=== PATIENT | female | born 1930 | race Two or more races ===

== ENCOUNTER 2018-03-02 09:18 | Outpatient (CLI) | payer OTHER | END 2018-03-02 09:24 | disposition home or self-care (01) | LOC: RAD 09:18 | DX: L89.149 Pressure ulcer of left lower back, unspecified stage (principal); G61.0 Guillain-Barre syndrome ==

== ENCOUNTER 2018-03-02 10:05 | Outpatient (CLI) | payer OTHER | END 2018-03-02 10:30 | disposition home or self-care (01) | LOC: NUCLEAR 10:05 | DX: L89.149 Pressure ulcer of left lower back, unspecified stage (principal); G61.0 Guillain-Barre syndrome; I73.9 Peripheral vascular disease, unspecified ==

== ENCOUNTER 2018-03-03 12:55 | Outpatient (CLI) | payer OTHER | END 2018-03-03 13:52 | disposition home or self-care (01) | LOC: EDBD 12:55 → NUCLEAR 12:55 | DX: L89.149 Pressure ulcer of left lower back, unspecified stage (principal); G61.0 Guillain-Barre syndrome; I87.2 Venous insufficiency (chronic) (peripheral) ==

== ENCOUNTER 2018-03-19 21:35 | Inpatient (IN) | payer OTHER ==
[~2018-03-19] VITALS: Ht 160 cm; Wt 63.5 kg
[2018-05-03] MEDS ORDERED: NIFE60TA3 PO (08:50)
[2018-05-03] MEDS ORDERED: NIFEDIPINE ER60 MG PO (16:59)
[2018-05-03] MEDS ORDERED: FERROUS SULFAT325 M1 PO (16:59)
[2018-05-03] MEDS ORDERED: CLOTRIMAZOLE15 GM TOP (17:00)
[2018-05-03] MEDS ORDERED: B Complex CAPSULE PO (17:01)
[2018-05-03] MEDS ORDERED: VITAMIN C500 M1 PO (17:01)
[2018-05-03] MEDS ORDERED: MULTIVITAMINS1 EAC1 PO (17:01)
[2018-05-03] MEDS ORDERED: Intestinex CAP PO (17:02)
[2018-05-03] MEDS ORDERED: LEVAQUIN500 MG PO (17:03)
[2018-05-03] MEDS ORDERED: PRE PROTEIN 2030 ML PO (17:05)
== END 2018-05-03 18:21 | disposition home or self-care (01) | DRG 623 ==
LOC: ER 21:35 → MEDJ 03-20 08:37
PROVIDERS: ADMIT Internal Medicine Cardiovascular Disease
PROC: BQ3MZZZ Magnetic Resonance Imaging (MRI) of Left Foot (ICD-10-PCS; 2018-03-20)
PROC: 02HV33Z Insertion of Infusion Device into Superior Vena Cava, Percutaneous Approach (ICD-10-PCS; 2018-03-20)
PROC: 0T9B70Z Drainage of Bladder with Drainage Device, Via Natural or Artificial Opening (ICD-10-PCS; 2018-03-20)
PROC: 8E0ZXY6 Isolation (ICD-10-PCS; 2018-03-20)
PROC: 4A12X4Z Monitoring of Cardiac Electrical Activity, External Approach (ICD-10-PCS; 2018-03-26)
PROC: 0JBR0ZZ Excision of Left Foot Subcutaneous Tissue and Fascia, Open Approach (ICD-10-PCS; principal; 2018-04-01)
PROC: B246ZZZ Ultrasonography of Right and Left Heart (ICD-10-PCS; 2018-04-01)
PROC: BT4JZZZ Ultrasonography of Kidneys and Bladder (ICD-10-PCS; 2018-04-01)
PROC: 30233N1 Transfusion of Nonautologous Red Blood Cells into Peripheral Vein, Percutaneous Approach (ICD-10-PCS; 2018-04-13)
DX: E11.621 Type 2 diabetes mellitus with foot ulcer (principal); N39.0 Urinary tract infection, site not specified; E11.52 Type 2 diabetes mellitus with diabetic peripheral angiopathy with gangrene; I70.262 Atherosclerosis of native arteries of extremities with gangrene, left leg; M86.672 Other chronic osteomyelitis, left ankle and foot; L97.524 Non-pressure chronic ulcer of other part of left foot with necrosis of bone; L89.322 Pressure ulcer of left buttock, stage 2; L89.312 Pressure ulcer of right buttock, stage 2; L89.152 Pressure ulcer of sacral region, stage 2; Z79.84 Long term (current) use of oral hypoglycemic drugs; B35.3 Tinea pedis; E11.22 Type 2 diabetes mellitus with diabetic chronic kidney disease; I12.9 Hypertensive chronic kidney disease with stage 1 through stage 4 chronic kidney disease, or unspecified chronic kidney disease; N18.2 Chronic kidney disease, stage 2 (mild); N17.8 Other acute kidney failure; D63.1 Anemia in chronic kidney disease; E87.5 Hyperkalemia; I87.2 Venous insufficiency (chronic) (peripheral); I70.0 Atherosclerosis of aorta; B96.89 Other specified bacterial agents as the cause of diseases classified elsewhere; B95.2 Enterococcus as the cause of diseases classified elsewhere; B96.4 Proteus (mirabilis) (morganii) as the cause of diseases classified elsewhere

== ENCOUNTER 2018-07-05 14:19 | Inpatient (IN) | payer OTHER ==
[~2018-07-05] VITALS: Ht 157.5 cm; Wt 140.0 kg
[~2018-07-05 14:19] MED LIST: B Complex CAPSULE PO; CLOTRIMAZOLE15 GM TOP; FERROUS SULFAT325 M1 PO; Intestinex CAP PO; LEVAQUIN500 MG PO; MULTIVITAMINS1 EAC1 PO; NIFE60TA3 PO; NIFEDIPINE ER60 MG PO; PRE PROTEIN 2030 ML PO; VITAMIN C500 M1 PO
[2018-07-05] MEDS ORDERED: CEFEPIME 11 GM/50 ML IV (15:14)
--- NOTE | 2018-07-05 15:15 | NUR ---
PACIENTE AL MOMENTO ESTABLE DENTRO DE LOZANO CONDICION, ALERTA Y ORIENTADA X3 LLEGA CON CBC OPD DE SEGUIMIENTO EL CUAL MUESTRA LA HEMOGLOBINA EN 7.1 Y HEMATOCRITO EN 22.4, SE PASA A AREA DE OBSERVACION, SE CONTINUA MONITOREANDO POR CAMBIOS.
--- NOTE | 2018-07-05 18:22 | NUR ---
SE ORIENTA A PTE SOBRE PROCESO DE VENOPUNCION Y JOSIAH DE MUESTRAS PTE REFIERE ENTENDER INF FARHAN POR RN DE SACHAO.
== END 2018-07-07 10:48 | disposition home or self-care (01) | DRG 683 ==
LOC: ER 14:19 → SEC-K 20:32 → EDBD 20:32 → MEDI 20:32 → MEDJ 07-06 01:59 → MEDI 07-06 01:59
PROVIDERS: ADMIT Internal Medicine Cardiovascular Disease
PROC: 30233N1 Transfusion of Nonautologous Red Blood Cells into Peripheral Vein, Percutaneous Approach (ICD-10-PCS; principal; 2018-07-05)
DX: I12.9 Hypertensive chronic kidney disease with stage 1 through stage 4 chronic kidney disease, or unspecified chronic kidney disease (principal); N17.8 Other acute kidney failure; G61.0 Guillain-Barre syndrome; M86.8X7 Other osteomyelitis, ankle and foot; D63.8 Anemia in other chronic diseases classified elsewhere; Z99.3 Dependence on wheelchair; I70.8 Atherosclerosis of other arteries; B35.3 Tinea pedis; E87.5 Hyperkalemia; G60.8 Other hereditary and idiopathic neuropathies; L89.152 Pressure ulcer of sacral region, stage 2; I87.2 Venous insufficiency (chronic) (peripheral); N18.9 Chronic kidney disease, unspecified; D63.1 Anemia in chronic kidney disease

== ENCOUNTER 2019-08-27 20:55 | Emergency (ER) | payer OTHER ==
[~2019-08-27] VITALS: Ht 162.6 cm; Wt 89.8 kg
[~2019-08-27 20:55] MED LIST changes: +CEFEPIME 11 GM/50 ML IV
== END 2019-08-28 02:34 | disposition designated cancer center or children's hospital (05) ==
LOC: ER 20:55
DX: I63.89 Other cerebral infarction (principal); G81.91 Hemiplegia, unspecified affecting right dominant side; R47.01 Aphasia; I10 Essential (primary) hypertension; N39.0 Urinary tract infection, site not specified; R31.29 Other microscopic hematuria
CPT/HCPCS: 70551

== ENCOUNTER 2019-10-01 17:54 | Inpatient (IN) | payer OTHER ==
[~2019-10-01] VITALS: Ht 167.6 cm; Wt 77.1 kg
[2019-10-01] MEDS ORDERED: ZESTRIL20 MG (17:58)
[2019-10-01] MEDS ORDERED: CALCIUM CARBON600 MG (17:59)
[2019-10-01] MEDS ORDERED: FLUCONAZOLE150 MG (17:59)
[2019-10-01] MEDS ORDERED: BIOFLEX TABLET1 EACH (17:59)
[2019-10-01] MEDS ORDERED: LOSARTAN POTASS50 MG (17:59)
[2019-10-01] MEDS ORDERED: MORGIDOX100 MG (18:00)
[2019-10-01] MEDS ORDERED: AMLODIPINE BESYL5 MG (18:00)
[2019-10-01] MEDS ORDERED: RANITIDINE HCL300 MG (18:00)
[2019-10-01] MEDS ORDERED: FLUCONAZOLE100 MG (18:00)
[2019-10-01] MEDS ORDERED: DAILY MULTIPLE1 EAC2 (18:00)
[2019-10-01] MEDS ORDERED: BAYER THERAPY325 MG (18:00)
[2019-10-03] MEDS ORDERED: CEFADROXIL500 MG PO (07:56)
[2019-10-03] MEDS ORDERED: ATORVASTATIN CA40 MG PO (07:57)
[2019-10-03] MEDS ORDERED: OMEPRAZOLE20 MG PO (07:57)
[2019-10-03] MEDS ORDERED: B-121000 MC1 PO (07:58)
== END 2019-10-17 16:15 | disposition expired | DRG 853 ==
LOC: ER 17:54 → MEDJ 19:53 → SURH 19:53 → MEDJ 10-04 13:07 → ICU 10-11 00:06
PROVIDERS: ADMIT Internal Medicine Cardiovascular Disease; ATTEND Internal Medicine Cardiovascular Disease
PROC: 8E0ZXY6 Isolation (ICD-10-PCS; 2019-10-01)
PROC: 0JB70ZZ Excision of Back Subcutaneous Tissue and Fascia, Open Approach (ICD-10-PCS; principal; 2019-10-02)
PROC: CP151ZZ Planar Nuclear Medicine Imaging of Spine using Technetium 99m (Tc-99m) (ICD-10-PCS; 2019-10-02)
PROC: 0QBS0ZZ Excision of Coccyx, Open Approach (ICD-10-PCS; 2019-10-06)
PROC: 0BH17EZ Insertion of Endotracheal Airway into Trachea, Via Natural or Artificial Opening (ICD-10-PCS; 2019-10-10)
PROC: 5A1945Z Respiratory Ventilation, 24-96 Consecutive Hours (ICD-10-PCS; 2019-10-10)
PROC: 02HV33Z Insertion of Infusion Device into Superior Vena Cava, Percutaneous Approach (ICD-10-PCS; 2019-10-10)
PROC: 3E0436Z Introduction of Nutritional Substance into Central Vein, Percutaneous Approach (ICD-10-PCS; 2019-10-10)
PROC: 4A12X4Z Monitoring of Cardiac Electrical Activity, External Approach (ICD-10-PCS; 2019-10-10)
PROC: B24BZZZ Ultrasonography of Heart with Aorta (ICD-10-PCS; 2019-10-11)
PROC: BT4JZZZ Ultrasonography of Kidneys and Bladder (ICD-10-PCS; 2019-10-11)
PROC: 30243N1 Transfusion of Nonautologous Red Blood Cells into Central Vein, Percutaneous Approach (ICD-10-PCS; 2019-10-11)
PROC: 0DH67UZ Insertion of Feeding Device into Stomach, Via Natural or Artificial Opening (ICD-10-PCS; 2019-10-13)
PROC: 3E0G76Z Introduction of Nutritional Substance into Upper GI, Via Natural or Artificial Opening (ICD-10-PCS; 2019-10-13)
PROC: 4A033R1 Measurement of Arterial Saturation, Peripheral, Percutaneous Approach (ICD-10-PCS; 2019-10-16)
DX: A41.51 Sepsis due to Escherichia coli [E. coli] (principal); L89.153 Pressure ulcer of sacral region, stage 3; R65.21 Severe sepsis with septic shock; J96.01 Acute respiratory failure with hypoxia; T83.511A Infection and inflammatory reaction due to indwelling urethral catheter, initial encounter; B37.49 Other urogenital candidiasis; I96 Gangrene, not elsewhere classified; I69.351 Hemiplegia and hemiparesis following cerebral infarction affecting right dominant side; M46.28 Osteomyelitis of vertebra, sacral and sacrococcygeal region; J90 Pleural effusion, not elsewhere classified; J98.11 Atelectasis; E87.4 Mixed disorder of acid-base balance; N17.8 Other acute kidney failure; E87.1 Hypo-osmolality and hyponatremia; R73.9 Hyperglycemia, unspecified; E87.5 Hyperkalemia; A41.81 Sepsis due to Enterococcus; A41.1 Sepsis due to other specified staphylococcus; E86.0 Dehydration; B96.1 Klebsiella pneumoniae [K. pneumoniae] as the cause of diseases classified elsewhere; I87.2 Venous insufficiency (chronic) (peripheral); G60.8 Other hereditary and idiopathic neuropathies; D63.8 Anemia in other chronic diseases classified elsewhere; I12.9 Hypertensive chronic kidney disease with stage 1 through stage 4 chronic kidney disease, or unspecified chronic kidney disease; L89.142 Pressure ulcer of left lower back, stage 2; L89.222 Pressure ulcer of left hip, stage 2; N18.3 Chronic kidney disease, stage 3 (moderate); I69.320 Aphasia following cerebral infarction; Z03.818 Encounter for observation for suspected exposure to other biological agents ruled out; Z74.01 Bed confinement status